=== PATIENT | male | born 1975 | race Caucasian/White ===

== ENCOUNTER 2020-04-11 15:07 | Emergency (ER) | payer SELFPAY ==
[2020-04-11 15:12] VITALS: BP 166/98; PULSE 119; RESP 18; TEMP 36.6; O2SAT 93; BMI 28.7
--- NOTE | 2020-04-11 15:27 | XRR_ITS ---
PROCEDURE INFORMATION: Exam: XR Chest, 1 View Exam date and time: 04/11/2020 4:20 PM Age: 44 years old Clinical indication: Shortness of breath; Additional info: SOB TECHNIQUE: Imaging protocol: XR of the chest Views: 1 view. COMPARISON: CR Chest 1 [place] [id number] 04/02/2018 11:53 AM FINDINGS: Lungs: Unremarkable. No consolidation. Pleural space: Unremarkable. No pleural effusion. No pneumothorax. Heart/Mediastinum: Unremarkable. No cardiomegaly. Bones/joints: Unremarkable. Other findings: Lordotic chest x-ray. XR/XR chest 1V portable [id number] IMPRESSION: No acute findings.
--- NOTE | 2020-04-11 15:30 | ECG_ITS ---
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
--- NOTE | 2020-04-11 15:31 | W.ED.ABDPA2 ---
HPI - Abdominal Pain General: Chief Complaint: Abdominal Pain Stated Complaint: ABD Pain/SOB Time Seen by Provider: 04/11/20 15:15 Source: patient and police Mode of arrival: ambulatory Limitations: no limitations History of Present Illness: HPI narrative: Patient is a 44-year-old male who has been in [facility] for 3 years and was brought in by law enforcement. He complains of epigastric pain that started about 3 days ago and has been gradually worsening. No prior history of stomach ulcers or pancreatitis. He also has associated shortness of breath that he feels is gradually worsening. No fever. He endorses loss of taste and reduced appetite. He has some diarrhea also because of all the symptoms he has to be seen in the emergency department. MD elicited complaint: abdominal pain Pertinent past history: none Pain Consistency: constant Location: Epigastric Severity: severe Quality: stabbing Radiation: back Exacerbating factors: nothing Relieving factors: nothing Associated Symptoms: Reports anorexia, diarrhea, nausea and poor appetite; Denies belching, bloating, change in bowel habits, change in stool character, chills, coffee ground emesis, constipation, GI cramping, dyspepsia, dysuria, excessive flatus, fever(s), heartburn, hematochezia, hematuria, hematemesis, fecal incontinence, loose stools, melena, syncope and vomiting Review of Systems General: Reports: 10 or more systems reviewed and unremarkable except in HPI and below Const: Denies: fever(s) or chills Eyes: Denies: change in vision or blurry vision ENMT: Denies: throat pain, enlarged tonsils, odynophagia, hoarseness, mouth pain or swelling of lips/tongue Card: Denies: syncope Resp: Denies: dyspnea, productive cough or non-productive cough GI: Reports: nausea and diarrhea; Denies: vomiting, hematemesis, coffee ground emesis, heartburn, constipation, bloating, GI cramping, belching, excessive flatus, fecal incontinence, change in bowel habits, change in stool character, hematochezia or melena : Denies: dysuria or hematuria Musc: Denies: neck pain, back pain or extremity swelling Skin/Breast: Denies: rash, pruritus or erythema Neuro: Denies: headache(s), numbness in extremities or weakness in extremities Endo: Denies: polyuria, polydipsia or tired all the time [facility] PFS: Medical History (Updated 04/11/20 @ 21:51 by Eliu Macario MD, [facility] [place], [place]) Abscess or cellulitis, oral soft tissue Anxiety Caries involving multiple surfaces of tooth Epidermoid cyst Hypertension Lumbar back pain with radiculopathy affecting lower extremity Positive hepatitis C antibody test Surgical History No pertinent past surgical history Family History Father Cancer Social History Smoking and tobacco status: current every day smoker Second hand smoke exposure: Yes Smoking risk assessment/counseling performed?: Yes Alcohol intake: former Desire information about alcohol rehabilitation?: No Counseling given: No Desire information about substance/drug rehabilitation?: No Counseling given: No Caregiver/support person: Yes Lives independently: No Household members: none Housing: Other Details: [place] Marital status: Single service: No Current occupational status: unemployed Current occupational exposures/hazards: No Pets and animals: No History of recent travel: No Current gender identity: Male Special reggie needs: No Physical Exam Const: COMMON NORMALS: no acute distress, average body habitus, patient oriented x3, no limitations, healthy appearing, alert and well nourished HENMT: COMMON NORMALS: normocephalic, atraumatic and moist oral mucous membranes HEAD & SCALP: normocephalic and atraumatic Eye: COMMON NORMALS: Equal, round and reactive pupils present, EOMs intact bilaterally and no scleral icterus CONJUNCTIVA: Yes conjunctival abnormal positive bilateral conjunctival injection PUPIL: Yes Equal, round and reactive pupils present Neck/C-Spine: COMMON NORMALS: no meningeal signs and no JVD Resp: COMMON NORMALS: normal respiratory effort, No retractions, No use of accessory muscles, clear to auscultation bilaterally and percussion normal AUSCULTATION: clear to auscultation bilaterally PERCUSSION: percussion normal Cardio: COMMON NORMALS: no JVD, regular rate, regular rhythm, S1 normal heart sound present, S2 normal heart sound present, No gallops present (Cardio), No clicks present (Cardio), No murmurs present (Cardio), No rub (Cardio) and Peripheral pulses 2+ throughout RATE: regular rate RHYTHM: regular rhythm HEART SOUNDS: S1 normal heart sound present and S2 normal heart sound present PERIPHERAL PULSES: Peripheral pulses 2+ throughout GI: COMMON NORMALS: Normal to inspection, nondistended, normoactive bowel sounds present, Soft to palpation, No hepatosplenomegaly present, no masses and no bruits PALPATION: Yes Soft to palpation, Yes Tenderness to palpation present (GI) (Epigastric), Yes Guarding due to palpation present (GI) (Epigastric) and Yes No hepatosplenomegaly present Extremity: COMMON NORMALS: normal to inspection, full ROM, capillary refill normal, no calf tenderness and no pedal edema Neuro: COMMON NORMALS: patient oriented x3 SENSORIUM/ORIENTATION: Yes alert MENINGEAL SIGNS: Yes no meningeal signs Skin: COMMON NORMALS: no rashes or lesions noted, no wounds, turgor normal, no jaundice, no petechiae and no mottling GENERAL SKIN EXAM: no rashes or lesions noted and turgor normal Course ED course: 44-year-old prisoner who was brought in for abdominal pain and upper respiratory tract symptoms. Evaluation in the ED showed that he was positive for COVID-19, but also had a mild case of acute pancreatitis. His pain resolved following management in the emergency department. He is not hypoxic and remained on room air throughout his ED stay with oxygen saturation in the high 90s. Vital Signs: Vital signs: Vital Signs Temperature 97.9 F 04/11/20 15:12 Pulse Rate 96 04/11/20 20:38 Respiratory Rate 14 04/11/20 20:38 Blood Pressure 132/66 04/11/20 20:38 Pulse Oximetry 97 04/11/20 20:38 MDM - Abdominal Pain MDM Narrative: Medical decision making narrative: 44-year-old male with Covid gastroenteritis and conjunctivitis. He also had a mild case of acute pancreatitis. Pain was controlled in the emergency department. The patient was not hypoxic and all his vital signs were normal throughout his ED stay. He is therefore discharged back to [facility] on conservative measures including pain medication for the pancreatitis. He is to return for any concerns. Medical Records: Attestation: I reviewed the patient's medical records. Lab Data: Attestation: I reviewed the patient's lab results. Labs: Lab Results 04/11/20 04/11/20 04/11/20 Range/Units 15:35 15:35 15:35 WBC 6.1 (4.0-10.0) 10^3/ uL RBC 3.98 L (4.1-5.3) 10^6/u L Hgb 13.6 (11.7-16.6) g/dL Hct 37.9 L (42.0-52.0) % MCV 95.2 H (80-94) fL MCH 34.2 H (28.0-34.0) pg MCHC 35.9 (30.0-36.0) g/dL RDW 11.8 L (12.1-15.1) % Plt Count 177 (130-400) 10^3/c mm MPV 10.8 H (7.4-10.4) fL Neut % (Auto) 54.6 % Lymph % (Auto) 34.8 % [place] % (Auto) 7.1 % Eos % (Auto) 1.5 % Baso % (Auto) 1.5 % Neut # (Auto) 3.31 (1.8-7.7) 10^3/u L Lymph # (Auto) 2.1 (0.8-4.8) 10^3/u L [place] # (Auto) 0.4 (0.2-0.9) 10^3/u L Eos # (Auto) 0.1 (0.0-0.8) 10^3/u L Baso # (Auto) 0.1 (0.0-0.1) 10^3/u L Nucleated RBC % (a uto) 0 % Nucleated RBCs # 0.0 /100WBC D-Dimer <= 0.27 (0-0.59) ug/mIFE U Sodium 134 L (136-145) mmol/L Potassium 5.0 (3.5-5.1) mmol/L Chloride 100 (98-107) mmol/L Carbon Dioxide 21 L (22-29) mmol/L Anion Gap 18.0 (5-19) BUN 18 (6-20) mg/dL Creatinine 0.9 (0.7-1.2) mg/dL GFR Calculation 91.7 (90-130) mL/min Glucose 105 (65-115) mg/dL Calculated Osmolal ity 280 L (285-295) mOsm/k g Lactic Acid (0.5-2.2) mmol/L Calcium 9.6 (8.5-10.5) mg/dL Total Bilirubin 0.3 (0.15-1.2) mg/dL AST 22 (0-40) U/L ALT 35 (0-41) U/L Alkaline Phosphata se 76 (40-130) IU/L Troponin T Baselin e (0-15) ng/L Troponin T 120 Min [place] (0-15) ng/L Delta Troponin T (0-10) ABS# C-Reactive Protein 0.6 (0.0-4.9) mg/L Total Protein 8.2 (6.6-8.7) g/dL Albumin 5.0 (3.5-5.2) g/dL Globulin 3.2 (1.3-4.6) g/dL Lipase (13-60) U/L Procalcitonin 0.05 (0-0.5) ng/mL Urine Color (Yellow) Urine Appearance (CLEAR) Urine pH (5-7) Ur Specific Gravit y (1.005-1.030) Urine Protein (Negative) Urine Glucose (UA) (Normal) Urine Ketones (Negative) Urine Blood (Negative) Urine Nitrate (Negative) Urine Bilirubin (Negative) Urine Urobilinogen (Negative) mg/dL Ur Leukocyte Margarita ase (Negative) Nasal/Oral COVID-1 9 PCR Influenza Type A A g (Negative) Influenza Type B A g (Negative) SARS-CoV-2 Ag (Rap id) (Negative) 04/11/20 04/11/20 04/11/20 Range/Units 15:35 15:35 15:35 WBC (4.0-10.0) 10^3/ uL RBC (4.1-5.3) 10^6/u L Hgb (11.7-16.6) g/dL Hct (42.0-52.0) % MCV (80-94) fL MCH (28.0-34.0) pg MCHC (30.0-36.0) g/dL RDW (12.1-15.1) % Plt Count (130-400) 10^3/c mm MPV (7.4-10.4) fL Neut % (Auto) % Lymph % (Auto) % [place] % (Auto) % Eos % (Auto) % Baso % (Auto) % Neut # (Auto) (1.8-7.7) 10^3/u L Lymph # (Auto) (0.8-4.8) 10^3/u L [place] # (Auto) (0.2-0.9) 10^3/u L Eos # (Auto) (0.0-0.8) 10^3/u L Baso # (Auto) (0.0-0.1) 10^3/u L Nucleated RBC % (a uto) % Nucleated RBCs # /100WBC D-Dimer (0-0.59) ug/mIFE U Sodium (136-145) mmol/L Potassium (3.5-5.1) mmol/L Chloride (98-107) mmol/L Carbon Dioxide (22-29) mmol/L Anion Gap (5-19) BUN (6-20) mg/dL Creatinine (0.7-1.2) mg/dL GFR Calculation (90-130) mL/min Glucose (65-115) mg/dL Calculated Osmolal ity (285-295) mOsm/k g Lactic Acid 0.9 (0.5-2.2) mmol/L Calcium (8.5-10.5) mg/dL Total Bilirubin (0.15-1.2) mg/dL AST (0-40) U/L ALT (0-41) U/L Alkaline Phosphata se (40-130) IU/L Troponin T Baselin e 9 (0-15) ng/L Troponin T 120 Min [place] (0-15) ng/L Delta Troponin T (0-10) ABS# C-Reactive Protein (0.0-4.9) mg/L Total Protein (6.6-8.7) g/dL Albumin (3.5-5.2) g/dL Globulin (1.3-4.6) g/dL Lipase 74 H (13-60) U/L Procalcitonin (0-0.5) ng/mL Urine Color (Yellow) Urine Appearance (CLEAR) Urine pH (5-7) Ur Specific Gravit y (1.005-1.030) Urine Protein (Negative) Urine Glucose (UA) (Normal) Urine Ketones (Negative) Urine Blood (Negative) Urine Nitrate (Negative) Urine Bilirubin (Negative) Urine Urobilinogen (Negative) mg/dL Ur Leukocyte Margarita ase (Negative) Nasal/Oral COVID-1 9 PCR Influenza Type A A g (Negative) Influenza Type B A g (Negative) SARS-CoV-2 Ag (Rap id) (Negative) 04/11/20 04/11/20 04/11/20 Range/Units 15:57 15:57 15:58 WBC (4.0-10.0) 10^3/ uL RBC (4.1-5.3) 10^6/u L Hgb (11.7-16.6) g/dL Hct (42.0-52.0) % MCV (80-94) fL MCH (28.0-34.0) pg MCHC (30.0-36.0) g/dL RDW (12.1-15.1) % Plt Count (130-400) 10^3/c mm MPV (7.4-10.4) fL Neut % (Auto) % Lymph % (Auto) % [place] % (Auto) % Eos % (Auto) % Baso % (Auto) % Neut # (Auto) (1.8-7.7) 10^3/u L Lymph # (Auto) (0.8-4.8) 10^3/u L [place] # (Auto) (0.2-0.9) 10^3/u L Eos # (Auto) (0.0-0.8) 10^3/u L Baso # (Auto) (0.0-0.1) 10^3/u L Nucleated RBC % (a uto) % Nucleated RBCs # /100WBC D-Dimer (0-0.59) ug/mIFE U Sodium (136-145) mmol/L Potassium (3.5-5.1) mmol/L Chloride (98-107) mmol/L Carbon Dioxide (22-29) mmol/L Anion Gap (5-19) BUN (6-20) mg/dL Creatinine (0.7-1.2) mg/dL GFR Calculation (90-130) mL/min Glucose (65-115) mg/dL Calculated Osmolal ity (285-295) mOsm/k g Lactic Acid (0.5-2.2) mmol/L Calcium (8.5-10.5) mg/dL Total Bilirubin (0.15-1.2) mg/dL AST (0-40) U/L ALT (0-41) U/L Alkaline Phosphata se (40-130) IU/L Troponin T Baselin e (0-15) ng/L Troponin T 120 Min [place] (0-15) ng/L Delta Troponin T (0-10) ABS# C-Reactive Protein (0.0-4.9) mg/L Total Protein (6.6-8.7) g/dL Albumin (3.5-5.2) g/dL Globulin (1.3-4.6) g/dL Lipase (13-60) U/L Procalcitonin (0-0.5) ng/mL Urine Color (Yellow) Urine Appearance (CLEAR) Urine pH (5-7) Ur Specific Gravit y (1.005-1.030) Urine Protein (Negative) Urine Glucose (UA) (Normal) Urine Ketones (Negative) Urine Blood (Negative) Urine Nitrate (Negative) Urine Bilirubin (Negative) Urine Urobilinogen (Negative) mg/dL Ur Leukocyte Margarita ase (Negative) Nasal/Oral COVID-1 9 PCR Cancelled Influenza Type A A g Negative (Negative) Influenza Type B A g Negative (Negative) SARS-CoV-2 Ag (Rap id) Positive H (Negative) 04/11/20 04/11/20 Range/Units 17:34 17:58 WBC (4.0-10.0) 10^3/ uL RBC (4.1-5.3) 10^6/u L Hgb (11.7-16.6) g/dL Hct (42.0-52.0) % MCV (80-94) fL MCH (28.0-34.0) pg MCHC (30.0-36.0) g/dL RDW (12.1-15.1) % Plt Count (130-400) 10^3/c mm MPV (7.4-10.4) fL Neut % (Auto) % Lymph % (Auto) % [place] % (Auto) % Eos % (Auto) % Baso % (Auto) % Neut # (Auto) (1.8-7.7) 10^3/u L Lymph # (Auto) (0.8-4.8) 10^3/u L [place] # (Auto) (0.2-0.9) 10^3/u L Eos # (Auto) (0.0-0.8) 10^3/u L Baso # (Auto) (0.0-0.1) 10^3/u L Nucleated RBC % (a uto) % Nucleated RBCs # /100WBC D-Dimer (0-0.59) ug/mIFE U Sodium (136-145) mmol/L Potassium (3.5-5.1) mmol/L Chloride (98-107) mmol/L Carbon Dioxide (22-29) mmol/L Anion Gap (5-19) BUN (6-20) mg/dL Creatinine (0.7-1.2) mg/dL GFR Calculation (90-130) mL/min Glucose (65-115) mg/dL Calculated Osmolal ity (285-295) mOsm/k g Lactic Acid (0.5-2.2) mmol/L Calcium (8.5-10.5) mg/dL Total Bilirubin (0.15-1.2) mg/dL AST (0-40) U/L ALT (0-41) U/L Alkaline Phosphata se (40-130) IU/L Troponin T Baselin e (0-15) ng/L Troponin T 120 Min [place] 9.37 (0-15) ng/L Delta Troponin T 0.37 (0-10) ABS# C-Reactive Protein (0.0-4.9) mg/L Total Protein (6.6-8.7) g/dL Albumin (3.5-5.2) g/dL Globulin (1.3-4.6) g/dL Lipase (13-60) U/L Procalcitonin (0-0.5) ng/mL Urine Color Yellow (Yellow) Urine Appearance Clear (CLEAR) Urine pH 7 (5-7) Ur Specific Gravit y 1.005 (1.005-1.030) Urine Protein Neg (Negative) Urine Glucose (UA) Norm (Normal) Urine Ketones Negative (Negative) Urine Blood Neg (Negative) Urine Nitrate Negative (Negative) Urine Bilirubin Neg (Negative) Urine Urobilinogen Norm (Negative) mg/dL Ur Leukocyte Margarita ase Negative (Negative) Nasal/Oral COVID-1 9 PCR Influenza Type A A g (Negative) Influenza Type B A g (Negative) SARS-CoV-2 Ag (Rap id) (Negative) Imaging Data ^: CXR: Attestation: I personally reviewed and interpreted this imaging study as follows: Radiologist's impression: [place] [address] XRay Report Signed Patient: Emely Almeida #: [id number] : 1975Acct#:[id number] Age/Sex: 44 / MADM Date: 04/11/20 Loc: ERRoom/Bed: Attending Dr: Ordering Provider/Ordering MD: Eliu Macario MD, [facility] – [place], [place] Date of Service: 04/11/20 Procedure(s): XR chest 1V portable [id number] Accession Number(s): [id number] Report Number: [id number] PROCEDURE INFORMATION: Exam: XR Chest, 1 View Exam date and time: 04/11/2020 4:20 PM Age: 44 years old Clinical indication: Shortness of breath; Additional info: SOB TECHNIQUE: Imaging protocol: XR of the chest Views: 1 view. COMPARISON: CR Chest 1 [place] [id number] 04/02/2018 11:53 AM FINDINGS: Lungs: Unremarkable. No consolidation. Pleural space: Unremarkable. No pleural effusion. No pneumothorax. Heart/Mediastinum: Unremarkable. No cardiomegaly. Bones/joints: Unremarkable. Other findings: Lordotic chest x-ray. XR/XR chest 1V portable [id number] IMPRESSION: No acute findings. Dictated By:Sy Licona MD Signed By:Sy Licona MDSigned Date/Time:04/11/201704 DD/ 03 CT Abd/Pel: Radiologist's impression: Front [place] [address] [address] Scan Report Signed Patient: Emely Almeida #: [id number] : 1975Acct#:[id number] Age/Sex: 44 / MADM Date: 04/11/20 Loc: ERRoom/Bed: Attending Dr: Ordering Provider/Ordering MD: Eliu Macario MD, [facility] [place], [place] Date of Service: 04/11/20 Procedure(s): CT abdomen pelvis w con* [id number] Accession Number(s): [id number] Report Number: [id number] PROCEDURE INFORMATION: Exam: CT Abdomen And Pelvis With Contrast Exam date and time: 04/11/2020 7:20 PM Age: 44 years old Clinical indication: Abdominal pain; Epigastric; Additional info: Epigastric pain TECHNIQUE: Imaging protocol: Computed tomography of the abdomen and pelvis with intravenous contrast. Radiation optimization: All CT scans at this facility use at least one of these dose optimization techniques: automated exposure control; mA and/or kV adjustment per patient size (includes targeted exams where dose is matched to clinical indication); or iterative reconstruction. Contrast material: OMNIPAQUE 300; Contrast volume: 95 ml; Contrast route: INTRAVENOUS (IV); COMPARISON: No relevant prior studies available. RADIATION DOSE METRICS: Total DLP (mGy-cm): 646.85 FINDINGS: Liver: Normal. No mass. Gallbladder and bile ducts: Normal. No calcified stones. No ductal dilation. Pancreas: Normal. No ductal dilation. Spleen: Normal. No splenomegaly. Adrenal glands: Normal. No mass. Kidneys and ureters: Normal. No hydronephrosis. Stomach and bowel: Unremarkable. No obstruction. No mucosal thickening. Appendix: No evidence of appendicitis. Intraperitoneal space: Unremarkable. No free air. No significant fluid collection. Vasculature: One or more calcified pelvic phleboliths. Lymph nodes: Calcified right hilar nodes and/or mediastinal nodes and/or lung granulomas consistent with old granulomatous disease. Urinary bladder: Unremarkable as visualized. Reproductive: Unremarkable as visualized. Bones/joints: Unremarkable. No acute fracture. Soft tissues: Unremarkable. Other findings: Examination is limited secondary to motion artifact. CT/CT abdomen pelvis w con* [id number] IMPRESSION: No acute findings. Radiation Dose CTDIVOL = (mGy): DLP = 646.85 (mGy-cm) Dictated By:Sy Licona MD Signed By:Sy Licona MDSigned Date/Time:04/11/201953 DD/ 51 EKG Data ^: EKG 1: Attestation: I personally reviewed and interpreted this EKG as follows: EKG interpretation date: 04/11/20 EKG interpretation time: 16:10 Prior EKG tracings: not available for review Interpretation: Normal sinus rhythm. Heart rate [address] changes. Normal axis. EKG 2: Attestation: I personally reviewed and interpreted this EKG as follows: EKG interpretation date: 04/11/20 EKG interpretation time: 17:54 Prior EKG tracings: available for review Interpretation: Normal sinus rhythm. Heart rate [address] changes. Discharge Plan Discharge Patient Disposition: Home Clinical Impression: Gastroenteritis due to 2019 novel coronavirus, Conjunctivitis due to COVID-19 Acute pancreatitis Qualifiers: Pancreatitis type: unspecified pancreatitis type Acute pancreatitis complication: no infection or necrosis Qualified Code(s): K85.90 - Acute pancreatitis without necrosis or infection, unspecified Condition: Stable Prescriptions: [place] 5-325 mg tablet 1 tab PO Q8H PRN (Reason: pain) Qty: 12 RF: 0 Continued tizanidine 2 mg tablet 2 mg PO BID Qty: 60 RF: 2 multivitamin [Tab-A-Sangita] Tablet 1 tab PO DAILY Qty: 30 RF: 2 lisinopril 10 mg tablet 10 mg PO DAILY Qty: 30 RF: 2 Adult Probiotic 3 billion cell capsule 3,000 mmu cells PO DAILY Qty: 30 RF: 2 gabapentin 300 mg capsule 300 mg PO TID Qty: 90 RF: 2 citalopram [Celexa] 40 mg tablet 40 mg PO DAILY Qty: 30 RF: 2 cefprozil 500 mg tablet 500 mg PO Q12H Qty: 20 RF: 2 diclofenac sodium 50 mg tablet,delayed release (DR/EC) 50 mg PO BID 30 Days Qty: 60 RF: 2 Discharge Orders: Discharge Order (Routine); Ordered 04/11/20 Ordered By: Eliu Macario Referrals: Prashanth Jung, [facility] [employer] [Primary Care Provider] - 1-3 days Discharge Diet: Advance as tolerated Discharge Activity: Resume usual activity Patient Instructions: Pancreatitis (ED), Gastroenteritis (ED) Activity Restrictions/Additional Instructions: Return for any new or worsening symptoms. Follow-up with your primary care provider within 2 days. Consume a soft diet until your pain is improved and then gradually advance your diet. You need to self isolate for at least 10 days and until you have no symptoms for 48 hours. Take the pain medicine as needed for pain. Coding Level of Care Code ED Offc Spec for Chg Fwd Exam Comprehensive
[2020-04-11 15:56] LABS: Basophils # 0.1 10^3/uL (0.0-0.1); Basophils % 1.5 %; Eosinophils # 0.1 10^3/uL (0.0-0.8); Eosinophils % 1.5 %; Hematocrit 37.9 % (42.0-52.0); Hemoglobin 13.6 g/dL (11.7-16.6); Lymphocytes # 2.1 10^3/uL (0.8-4.8); Lymphocytes % 34.8 %; Mean Corpuscular HGB Conc 35.9 g/dL (30.0-36.0); Mean Corpuscular Hemoglobin 34.2 pg (28.0-34.0); Mean Corpuscular Volume 95.2 fL (80-94); Mean Platelet Volume 10.8 fL (7.4-10.4); Monocytes # 0.4 10^3/uL (0.2-0.9); Monocytes % 7.1 %; Neutrophils # 3.31 10^3/uL (1.8-7.7); Neutrophils % 54.6 %; Nucleated Red Blood Cells % 0 %; Platelet Count 177 10^3/cmm (130-400); Red Blood Count 3.98 10^6/uL (4.1-5.3); Red Cell Distribution Width 11.8 % (12.1-15.1); White Blood Count 6.1 10^3/uL (4.0-10.0)
[2020-04-11 16:10] LABS: Lactic Sepsis W/Reflex 0.9 mmol/L (0.5-2.2)
[2020-04-11 16:12] LABS: Troponin(5th) Baseline 9 ng/L (0-15)
[2020-04-11 16:13] LABS: D Dimer <= 0.27 ug/mIFEU (0-0.59)
[2020-04-11] MEDS: lidocaine 2% viscous 15 ML, aluminum-mag hydrox-simethicon 30 ML, sucralfate oral liq 1 GM PO (16:31)
[2020-04-11 16:33] LABS: Procalcitonin 0.05 ng/mL (0-0.5)
[2020-04-11] MEDS: ondansetron 2 mg/ML SDV 2 mL 4 MG IV (16:34)
[2020-04-11] MEDS: pantoprazole 40 mg SDV IVP (16:40)
[2020-04-11 16:44] LABS: Alanine Aminotransferase 35 U/L (0-41); Alkaline Phosphatase 76 IU/L (40-130); Aspartate Amino Transferase 22 U/L (0-40); Blood Urea Nitrogen 18 mg/dL (6-20); C Reactive Protein 0.6 mg/L (0.0-4.9); Calcium 9.6 mg/dL (8.5-10.5); Carbon Dioxide 21 mmol/L (22-29); Chloride 100 mmol/L (98-107); Creatinine Clr Calc Pharmacy 118.6477; Globulin 3.2 g/dL (1.3-4.6); Glomerular Filtration Rate 91.7 mL/min (90-130); Glucose 105 mg/dL (65-115); Osmolality Calculated 280 mOsm/kg (285-295); Sodium 134 mmol/L (136-145); Total Bilirubin 0.3 mg/dL (0.15-1.2); Total Protein 8.2 g/dL (6.6-8.7)
[2020-04-11 16:47] LABS: Influenza A by IFA Negative (Negative); Influenza B by IFA Negative (Negative)
[2020-04-11 16:48] LABS: SARS Covid-2 Antigen Positive (Negative)
--- NOTE | 2020-04-11 17:28 | CTR_ITS ---
PROCEDURE INFORMATION: Exam: CT Abdomen And Pelvis With Contrast Exam date and time: 04/11/2020 7:20 PM Age: 44 years old Clinical indication: Abdominal pain; Epigastric; Additional info: Epigastric pain TECHNIQUE: Imaging protocol: Computed tomography of the abdomen and pelvis with intravenous contrast. Radiation optimization: All CT scans at this facility use at least one of these dose optimization techniques: automated exposure control; mA and/or kV adjustment per patient size (includes targeted exams where dose is matched to clinical indication); or iterative reconstruction. Contrast material: OMNIPAQUE 300; Contrast volume: 95 ml; Contrast route: INTRAVENOUS (IV); COMPARISON: No relevant prior studies available. RADIATION DOSE METRICS: Total DLP (mGy-cm): 646.85 FINDINGS: Liver: Normal. No mass. Gallbladder and bile ducts: Normal. No calcified stones. No ductal dilation. Pancreas: Normal. No ductal dilation. Spleen: Normal. No splenomegaly. Adrenal glands: Normal. No mass. Kidneys and ureters: Normal. No hydronephrosis. Stomach and bowel: Unremarkable. No obstruction. No mucosal thickening. Appendix: No evidence of appendicitis. Intraperitoneal space: Unremarkable. No free air. No significant fluid collection. Vasculature: One or more calcified pelvic phleboliths. Lymph nodes: Calcified right hilar nodes and/or mediastinal nodes and/or lung granulomas consistent with old granulomatous disease. Urinary bladder: Unremarkable as visualized. Reproductive: Unremarkable as visualized. Bones/joints: Unremarkable. No acute fracture. Soft tissues: Unremarkable. Other findings: Examination is limited secondary to motion artifact. CT/CT abdomen pelvis w con* [id number] IMPRESSION: No acute findings. Radiation Dose CTDIVOL = (mGy): DLP = 646.85 (mGy-cm)
--- NOTE | 2020-04-11 17:30 | ECG_ITS ---
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
[2020-04-11 17:37] LABS: Lipase 74 U/L (13-60)
[2020-04-11 18:13] LABS: Add Urine Microscopic? NO
[2020-04-11 18:14] LABS: Troponin 5 2HR 9.37 ng/L (0-15); Troponin 5 2HR Delta 0.37 ABS# (0-10)
[2020-04-11 18:18] LABS: Bilirubin Urine Neg (Negative); Blood Urine Neg (Negative); Glucose Urine UA Norm (Normal); Ketones Urine Negative (Negative); Leukocyte Esterase Urine Negative (Negative); Nitrate Urine Negative (Negative); Protein Urine Neg (Negative); Specific Gravity, Urine 1.005 (1.005-1.030); Urine Appearance Clear (CLEAR); Urine Color Yellow (Yellow); Urobilinogen Urine Norm (Negative); pH Urine 7 (5-7)
[2020-04-11 19:41] VITALS: BP 145/91; PULSE 83; O2SAT 96
[2020-04-11 20:10] VITALS: BP 119/75; PULSE 100; O2SAT 97
[2020-04-11 20:38] VITALS: BP 132/66; PULSE 96; RESP 14; O2SAT 97
== END 2020-04-11 20:39 | disposition home or self-care (01) ==
PROVIDERS: Emergency Provider Family Medicine; PCP Nurse Practitioner
DX: U07.1 COVID-19 (principal); A08.39 Other viral enteritis; B30.9 Viral conjunctivitis, unspecified; K85.90 Acute pancreatitis without necrosis or infection, unspecified; I10 Essential (primary) hypertension; Z86.19 Personal history of other infectious and parasitic diseases; F17.210 Nicotine dependence, cigarettes, uncomplicated
CPT/HCPCS: 12345; 71045; 74177; 80053; 81003; 83605; 83690; 84145; 84484; 85025; 85378; 86140; 87426; 87804; 93005; 96374; 96375; 99283; 99284; C9113; J2405; Q9967